=== PATIENT | male | born 1990 | race Caucasian/White ===

== ENCOUNTER 2018-11-01 22:58 | Emergency (ER) | payer SELFPAY | END 2018-11-01 23:22 | disposition left against medical advice (07) | LOC: MADERS 22:58 | DX: R10.31 Right lower quadrant pain (principal); R10.32 Left lower quadrant pain; R00.0 Tachycardia, unspecified; I10 Essential (primary) hypertension; F31.9 Bipolar disorder, unspecified; F17.210 Nicotine dependence, cigarettes, uncomplicated; V43.52XA Car driver injured in collision with other type car in traffic accident, initial encounter | CPT/HCPCS: 99283 ==